=== PATIENT | male | born 1945 | race Caucasian/White ===

== ENCOUNTER 2025-09-30 09:36 | Outpatient (CLI) | payer SELFPAY ==
--- NOTE | 2025-09-30 09:30 | RT.EKG_ITS ---
APPROVED REPORT Exam: Resting ECG Reason for Exam: CAD, afib Patient Location: O HR:66 bpm ECG Measurements Heart Rate 66 AXIS NH 194 P -66 QRSd 119 QRS -63 QT 597 T 101 QTc 626 Conclusion Sinus or ectopic atrial rhythm...P axis (-45,135) Incomplete RBBB and LAFB...axis(240,-40), S>R II III aVF Diffuse ST-T abnormalities
== END 2025-09-30 09:37 | disposition home or self-care (01) ==
LOC: DI.CARD 09:39
PROVIDERS: PCP Family Medicine; Visit Provider Internal Medicine Cardiovascular Disease
DX: I25.10 Atherosclerotic heart disease of native coronary artery without angina pectoris (principal); I48.0 Paroxysmal atrial fibrillation
CPT/HCPCS: 93010

== ENCOUNTER 2025-10-23 00:53 | Outpatient (CLI) | payer BC, SELFPAY ==
[2025-10-23] MEDS: Levalbuterol HFA 15 GM INH 4 PUFF IH (09:11)
[2025-10-23] MEDS: Inhaler, Assist Device 1 EACH MC (09:11)
--- NOTE | 2025-10-27 08:24 | W.PFT ---
Date of service: 10/23/25 Time of Service: 08:05 Pulmonary Function Test Result Indications: COPD Impression 1. Fair patient effort was noted. ATS standards for reproducibility were met. 2. Spirometry did not show any obstructive lung disease. 3. Following the administration of a bronchodilator there was not a significant response 4. TLC is reduced at 77% predicted, consistent with mild restrictive lung disease 5. DLCO was 49%, consistent with a severe defect in alveolar gas exchange. 6. Underlying interstitial lung disease should be considered. Given the disproportionate reduction in DLCO compared to TLC, combined emphysema and ILD or pulmonary hypertension should also be considered
== END 2025-10-23 00:54 | disposition home or self-care (01) ==
LOC: RT 00:53
PROVIDERS: PCP Family Medicine; Visit Provider Physician Assistant Surgical
DX: J96.91 Respiratory failure, unspecified with hypoxia (principal); J44.9 Chronic obstructive pulmonary disease, unspecified; J98.4 Other disorders of lung
CPT/HCPCS: 94060; 94726; 94729